=== PATIENT | female | born 1960 | race Caucasian/White ===

== ENCOUNTER 2023-11-08 13:44 | Inpatient (IN) | payer BC ==
[~2023-11-08] VITALS: Ht 167.6 cm; Wt 66.4 kg
[2023-11-08] MEDS ORDERED: ondansetron/PF 4mg/2ml inj IV ONE (16:25)
[2023-11-08 17:19] LABS: EOSINOPHILS # (AUTO) 0.1 X10'3 (0-0.9); HEMATOCRIT 25.6 % (35.0-45.0); HEMOGLOBIN 8.4 g/dl (12.0-16.0); LYMPHOCYTES # (AUTO) 1.8 X10'3 (1.1-4.8)
[2023-11-08 17:21] LABS: BASOPHILS # (AUTO) 0.1 X10'3 (0-0.2); BASOPHILS % (AUTO) 0.6 % (0-1); EOSINOPHILS % (AUTO) 0.5 % (0-6); LYMPHOCYTES % (AUTO) 18.6 % (21-51); MEAN CORPUSCULAR HEMOGLOBIN 31.4 PG (27.0-31.0); MEAN PLATELET VOLUME 6.9 FL (7.4-10.4); MONOCYTES # (AUTO) 0.6 X10'3 (0-0.9); MONOCYTES % (AUTO) 6.5 % (2-12); NEUTROPHILS % (AUTO) 73.8 % (42-75); PLATELET COUNT 373 X10'3 (140-440); RED BLOOD COUNT 2.69 X10'6 (4.20-5.60); RED CELL DISTRIBUTION WIDTH 15.9 % (11.5-14.5); WHITE BLOOD COUNT 9.5 X10'3 (4.5-11.0)
[2023-11-08 17:30] LABS: INR 1.4 INR
[2023-11-08 17:32] LABS: BILIRUBIN,URINE MODERATE (Neg); CLARITY,URINE TURBID (Clear); COLOR,URINE AMBER (Yellow); GLUCOSE, URINE NEGATIVE (Neg); KETONES,URINE TRACE mg/dl (Neg); LEUKOCYTE ESTERASE ,URINE SMALL (Neg); NITRITES, URINE NEGATIVE (Neg); OCCULT BLOOD,URINE SMALL (Neg); PH,URINE 5.5 (4.8-8.0); PROTEIN,URINE NEGATIVE (Neg)
[2023-11-08 17:34] LABS: ALANINE AMINOTRANSFERASE 24 U/L (12-78); ALBUMIN 1.8 G/DL (3.4-5.0); ALBUMIN/GLOBULIN RATIO 0.3 (1.1-1.5); ALKALINE PHOSPHATASE 126 IU/L (46-116); ANION GAP 11 (8-16); ASPARTATE AMINO TRANSFERASE 63 U/L (10-37); BILIRUBIN,TOTAL 3.1 MG/DL (0.1-1.0); BLOOD UREA NITROGEN 19 MG/DL (7-18); BUN/CREATININE RATIO 8.1 (10.0-20.0); CALCIUM 8.1 MG/DL (8.5-10.1); CHLORIDE 98 MMOL/L (99-107); CREATININE 2.36 MG/DL (0.40-0.90); GLUCOSE 97 MG/DL (70-104); LIPASE 12 U/L (16-77); MAGNESIUM 1.8 MG/DL (1.5-2.4); POTASSIUM 3.8 MMOL/L (3.5-5.1); SODIUM 128 MMOL/L (135-145); TOTAL CARBON DIOXIDE 18.9 MMOL/L (24-32); TOTAL PROTEIN 8.2 G/DL (6.4-8.2); eCRCL 23 ML/MIN; eGFR 21 ML/MIN
[2023-11-08 17:41] LABS: UA COLLECTION TYPE OTHER
[2023-11-08 17:44] LABS: PROTHROMBIN TIME 14.6 SECONDS (9.0-12.0)
[2023-11-08 18:38] LABS: HYALINE CASTS >30 /LPF (NEGATIVE); SQUAMOUS EPITHELIAL CELL,UR MANY /LPF (FEW)
[2023-11-08 18:39] LABS: BACTERIA,URINE 4+ /HPF (Neg); WBC,URINE 30-50 /HPF (0-4)
[2023-11-08 18:40] LABS: URIC ACID CRYSTALS 1+ /HPF (NEGATIVE)
[2023-11-08 18:41] LABS: YEAST FEW /HPF (NEGATIVE)
[2023-11-08] MEDS ORDERED: temazepam 15mg capsule PO PRN (21:00)
[2023-11-08] MEDS ORDERED: HYDROmorphone inj. 0.5 MG/0.5 ML DISP.SYRIN IM ONE (21:15)
[2023-11-08] MEDS ORDERED: ondansetron 4mg rapidly disintigrating tab PO ONE (21:15)
[2023-11-08] MEDS ORDERED: HYDROmorphone inj. 0.5 MG/0.5 ML DISP.SYRIN IV ONE (21:30)
[2023-11-08] MEDS ORDERED: morphine 2 MG/ML inj. syringe IV PRN (23:20)
[2023-11-08] MEDS ORDERED: acetaminophen 325mg tablet PO PRN ×2 (23:20)
[2023-11-08] MEDS ORDERED: bisacodyl 10mg suppository rectal RC PRN (23:20)
[2023-11-08] MEDS ORDERED: magnesium hydroxide 30ml (MOM) UD suspension PO PRN (23:20)
[2023-11-08] MEDS ORDERED: ondansetron/PF 4mg/2ml inj IV PRN (23:20)
[2023-11-08] MEDS ORDERED: acetaminophen 650mg rectal suppository RC PRN (23:20)
[2023-11-08] MEDS ORDERED: mag hydrox/Alum hydrox/simeth 30ml oral suspension PO PRN (23:20)
[2023-11-08] MEDS ORDERED: lactulose 20gm/30ml cup PO PRN (23:25)
[2023-11-09] VITALS (8 sets, daily range): BP systolic 97–108; BP diastolic 49–66; PULSE 69–89; RESP 14–18; TEMP 97.3–98.4; O2SAT 92–100
[2023-11-09] MEDS: normal saline 1000ml 1,000 ML IV SCH
[2023-11-09 00:09] LABS: PHOSPHORUS 3.1 MG/DL (2.3-4.5); PRO BRAIN NATRIURETIC PEPTIDE 855 PG/ML (0-125)
[2023-11-09] MEDS ORDERED: LIDO700A32 TOP (01:36)
[2023-11-09] MEDS ORDERED: LACT10SO78 PO (01:36)
[2023-11-09] MEDS ORDERED: PANT-47 PO (01:36)
[2023-11-09] MEDS ORDERED: POTA-208 PO (01:36)
[2023-11-09] MEDS ORDERED: FURO-150 PO (01:36)
[2023-11-09] MEDS ORDERED: DULO-31 PO (01:36)
[2023-11-09] MEDS ORDERED: QUET50TA PO (01:36)
[2023-11-09 06:08] LABS: BASOPHILS # (AUTO) 0.1 X10'3 (0-0.2); EOSINOPHILS # (AUTO) 0.1 X10'3 (0-0.9); HEMATOCRIT 23.7 % (35.0-45.0); HEMOGLOBIN 7.8 g/dl (12.0-16.0); LYMPHOCYTES # (AUTO) 1.8 X10'3 (1.1-4.8); MEAN CORPUSCULAR HEMOGLOBIN 31.4 PG (27.0-31.0); MEAN CORPUSCULAR HGB CONC 33.1 g/dL (33.0-36.5); MEAN PLATELET VOLUME 7.7 FL (7.4-10.4); MONOCYTES # (AUTO) 0.7 X10'3 (0-0.9); MONOCYTES % (AUTO) 7.2 % (2-12); NEUTROPHILS # (AUTO) 7.3 X10'3 (1.8-7.7); NEUTROPHILS % (AUTO) 72.8 % (42-75); PLATELET COUNT 222 X10'3 (140-440); RED BLOOD COUNT 2.49 X10'6 (4.20-5.60); RED CELL DISTRIBUTION WIDTH 15.8 % (11.5-14.5); WHITE BLOOD COUNT 10.1 X10'3 (4.5-11.0)
[2023-11-09 06:15] LABS: ALANINE AMINOTRANSFERASE 16 U/L (12-78); ALBUMIN 1.5 G/DL (3.4-5.0); ALBUMIN/GLOBULIN RATIO 0.3 (1.1-1.5); ALKALINE PHOSPHATASE 117 IU/L (46-116); ANION GAP 9 (8-16); ASPARTATE AMINO TRANSFERASE 68 U/L (10-37); BILIRUBIN,TOTAL 2.5 MG/DL (0.1-1.0); BLOOD UREA NITROGEN 21 MG/DL (7-18); BUN/CREATININE RATIO 8.1 (10.0-20.0); CALCIUM 8.1 MG/DL (8.5-10.1); CHLORIDE 100 MMOL/L (99-107); CREATININE 2.59 MG/DL (0.40-0.90); GLUCOSE 79 MG/DL (70-104); SODIUM 129 MMOL/L (135-145); TOTAL CARBON DIOXIDE 19.9 MMOL/L (24-32); eCRCL 21 ML/MIN; eGFR 19 ML/MIN
[2023-11-09] MEDS ORDERED: pantoprazole 40mg Tablet.DR PO SCH (07:30)
[2023-11-09] MEDS: rifaximin 550mg tablet PO SCH ×2 (08:19→20:08)
[2023-11-09] MEDS: pantoprazole 40mg Tablet.DR PO SCH (08:19)
[2023-11-09] MEDS: furosemide 10 MG/1 ML 10ml inj IV SCH ×2 (08:20→20:08)
[2023-11-09] MEDS: CefTRIAXone/D5W-Rocephin 1gm 50 ML IV SCH (08:20)
[2023-11-09] MEDS: docusate sod 100mg capsule PO SCH ×2 (08:21→20:08)
[2023-11-09] MEDS: HYDROcodone/acetaminophen 5mg/325mg tablet PO PRN ×2 (08:24→20:09)
[2023-11-09] MEDS: ondansetron 4mg rapidly disintigrating tab PO PRN (08:24)
[2023-11-09] MEDS ORDERED: pneumococcal 23-VAL P-sac vacc 25 mcg/0.5ml vial IMVAC ONE (10:00)
[2023-11-09] MEDS ORDERED: FLU VACC QS2023-24(6MOS UP)/PF 60 MCG/0.5 ML SYRINGE IM ONE (10:00)
[2023-11-09] MEDS: LIDOcaine 5% patch TP SCH (21:30)
[2023-11-09] MEDS: duloxetine 30mg CAPSULE.DR PO SCH (21:30)
[2023-11-09] MEDS: lactulose 20gm/30ml cup PO SCH ×2 (21:35→22:00)
[2023-11-10 02:35] VITALS: BP 107/59; PULSE 83; RESP 16; TEMP 97.3; O2SAT 92
[2023-11-10 06:00] VITALS: BP 112/56; PULSE 64; RESP 10; TEMP 98; O2SAT 94
[2023-11-10] MEDS: lactulose 20gm/30ml cup PO SCH ×3 (06:00→22:00)
[2023-11-10 06:48] LABS: BASOPHILS # (AUTO) 0.1 X10'3 (0-0.2); BASOPHILS % (AUTO) 0.8 % (0-1); EOSINOPHILS # (AUTO) 0.1 X10'3 (0-0.9); EOSINOPHILS % (AUTO) 1.6 % (0-6); HEMATOCRIT 22.7 % (35.0-45.0); HEMOGLOBIN 7.6 g/dl (12.0-16.0); LYMPHOCYTES # (AUTO) 1.8 X10'3 (1.1-4.8); LYMPHOCYTES % (AUTO) 22.8 % (21-51); MEAN CORPUSCULAR HEMOGLOBIN 31.5 PG (27.0-31.0); MEAN CORPUSCULAR HGB CONC 33.4 g/dL (33.0-36.5); MEAN CORPUSCULAR VOLUME 94.2 FL (78-98); MEAN PLATELET VOLUME 6.9 FL (7.4-10.4); MONOCYTES # (AUTO) 0.6 X10'3 (0-0.9); MONOCYTES % (AUTO) 7.9 % (2-12); NEUTROPHILS # (AUTO) 5.4 X10'3 (1.8-7.7); NEUTROPHILS % (AUTO) 66.9 % (42-75); PLATELET COUNT 310 X10'3 (140-440); RED BLOOD COUNT 2.42 X10'6 (4.20-5.60); RED CELL DISTRIBUTION WIDTH 16.3 % (11.5-14.5)
[2023-11-10 07:16] LABS: ALANINE AMINOTRANSFERASE 20 U/L (12-78); ALBUMIN 1.5 G/DL (3.4-5.0); ALBUMIN/GLOBULIN RATIO 0.3 (1.1-1.5); ALKALINE PHOSPHATASE 107 IU/L (46-116); ANION GAP 11 (8-16); ASPARTATE AMINO TRANSFERASE 57 U/L (10-37); BILIRUBIN,TOTAL 2.1 MG/DL (0.1-1.0); BLOOD UREA NITROGEN 25 MG/DL (7-18); BUN/CREATININE RATIO 8.5 (10.0-20.0); CALCIUM 8.1 MG/DL (8.5-10.1); CHLORIDE 100 MMOL/L (99-107); CREATININE 2.95 MG/DL (0.40-0.90); GLUCOSE 78 MG/DL (70-104); POTASSIUM 3.6 MMOL/L (3.5-5.1); SODIUM 130 MMOL/L (135-145); TOTAL CARBON DIOXIDE 18.9 MMOL/L (24-32); TOTAL PROTEIN 7.1 G/DL (6.4-8.2); eCRCL 19 ML/MIN; eGFR 16 ML/MIN
[2023-11-10] MEDS: docusate sod 100mg capsule PO SCH ×2 (08:00→20:00)
[2023-11-10] MEDS: pantoprazole 40mg Tablet.DR PO SCH (08:26)
[2023-11-10] MEDS: furosemide 10 MG/1 ML 10ml inj IV SCH ×2 (08:27→20:35)
[2023-11-10] MEDS: duloxetine 30mg CAPSULE.DR PO SCH (08:27)
[2023-11-10] MEDS: rifaximin 550mg tablet PO SCH ×2 (08:27→20:34)
[2023-11-10] MEDS: LIDOcaine 5% patch TP SCH (08:27)
[2023-11-10] MEDS: CefTRIAXone/D5W-Rocephin 1gm 50 ML IV SCH (08:27)
[2023-11-10] MEDS ORDERED: LidoCAINE 2% Topical Jelly 11mL syringe TOP ONE (10:30)
[2023-11-10 12:03] LABS: BILIRUBIN,URINE NEGATIVE (Neg); CLARITY,URINE CLOUDY (Clear); COLOR,URINE YELLOW (Yellow); GLUCOSE, URINE NEGATIVE (Neg); KETONES,URINE NEGATIVE (Neg); LEUKOCYTE ESTERASE ,URINE NEGATIVE (Neg); NITRITES, URINE NEGATIVE (Neg); OCCULT BLOOD,URINE SMALL (Neg); PH,URINE 5.5 (4.8-8.0); PROTEIN,URINE NEGATIVE (Neg); UROBILINOGEN,URINE 0.2 E.U/dL (0.2-1.0)
[2023-11-10 12:28] LABS: SODIUM,URINE RANDOM < 15 MEQ/L; TOTAL PROTEIN,URINE RANDOM 25.9 MG/DL; UA COLLECTION TYPE NON-SPECIFIED
[2023-11-10 12:29] LABS: HYALINE CASTS >30 /LPF (NEGATIVE); SQUAMOUS EPITHELIAL CELL,UR MANY /LPF (FEW)
[2023-11-10 12:32] LABS: CAL OXALATE CRYSTALS FEW /HPF (NEGATIVE)
[2023-11-10 12:33] LABS: BACTERIA,URINE 1+ /HPF (Neg); CELLULAR CAST 0-4 /LPF (NEGATIVE)
[2023-11-10 12:35] LABS: COARSE GRANULAR CAST 0-3 /LPF (NEGATIVE); FINE GRANULAR CAST 0-3 /LPF (NEGATIVE)
[2023-11-10 12:36] LABS: MUCUS STRANDS FEW /LPF (Neg); TRANSITIONAL EPI CELLS,URINE FEW /HPF
[2023-11-10 13:35] LABS: UA EOSINOPHILS NO EOS /HPF
[2023-11-10 15:00] VITALS: BP 98/56; PULSE 89; RESP 17; TEMP 98.3; O2SAT 95
[2023-11-10 18:00] VITALS: BP 106/63; PULSE 91; RESP 14; TEMP 97.4; O2SAT 96
[2023-11-10 20:00] VITALS: RESP 14; O2SAT 96
[2023-11-10] MEDS: HYDROcodone/acetaminophen 5mg/325mg tablet PO PRN (20:34)
[2023-11-10 22:00] VITALS: BP 114/66; PULSE 88; RESP 14; TEMP 97.9; O2SAT 93
[2023-11-10] MEDS: normal saline 1000ml 1,000 ML IV SCH (23:08)
[2023-11-11] VITALS (7 sets, daily range): BP systolic 105–124; BP diastolic 62–75; PULSE 83–89; RESP 14–20; TEMP 97.1–98.8; O2SAT 94–97
[2023-11-11 06:11] LABS: HEMOGLOBIN 7.2 g/dl (12.0-16.0); RED BLOOD COUNT 2.33 X10'6 (4.20-5.60)
[2023-11-11 06:15] LABS: MEAN PLATELET VOLUME 6.7 FL (7.4-10.4); PLATELET COUNT 300 X10'3 (140-440); RED CELL DISTRIBUTION WIDTH 16.3 % (11.5-14.5); WHITE BLOOD COUNT 7.3 X10'3 (4.5-11.0)
[2023-11-11 06:30] LABS: ALANINE AMINOTRANSFERASE 24 U/L (12-78); ALBUMIN 1.5 G/DL (3.4-5.0); ALBUMIN/GLOBULIN RATIO 0.3 (1.1-1.5); ALKALINE PHOSPHATASE 100 IU/L (46-116); ANION GAP 12 (8-16); ASPARTATE AMINO TRANSFERASE 56 U/L (10-37); BILIRUBIN,TOTAL 1.8 MG/DL (0.1-1.0); BLOOD UREA NITROGEN 23 MG/DL (7-18); BUN/CREATININE RATIO 8.2 (10.0-20.0); CALCIUM 8.2 MG/DL (8.5-10.1); CHLORIDE 101 MMOL/L (99-107); CREATININE 2.81 MG/DL (0.40-0.90); GLUCOSE 82 MG/DL (70-104); POTASSIUM 3.4 MMOL/L (3.5-5.1); SODIUM 131 MMOL/L (135-145); TOTAL PROTEIN 6.9 G/DL (6.4-8.2); eCRCL 20 ML/MIN; eGFR 17 ML/MIN
[2023-11-11 06:52] LABS: HEMATOCRIT 21.9 % (35.0-45.0)
[2023-11-11 07:17] LABS: ANISOCYTOSIS 1+; PLATELET ESTIMATE NORMAL; TOTAL CELLS COUNTED 100
[2023-11-11 07:18] LABS: SCHISTOCYTES FEW
[2023-11-11 07:27] LABS: TARGET CELLS FEW
[2023-11-11] MEDS: LIDOcaine 5% patch TP SCH (08:00)
[2023-11-11] MEDS: duloxetine 30mg CAPSULE.DR PO SCH (08:11)
[2023-11-11] MEDS: docusate sod 100mg capsule PO SCH ×2 (08:11→20:00)
[2023-11-11] MEDS: pantoprazole 40mg Tablet.DR PO SCH (08:11)
[2023-11-11] MEDS: rifaximin 550mg tablet PO SCH ×2 (08:11→20:08)
[2023-11-11] MEDS: lactulose 20gm/30ml cup PO SCH ×3 (08:11→22:00)
[2023-11-11] MEDS: ondansetron 4mg rapidly disintigrating tab PO PRN (08:23)
[2023-11-11] MEDS ORDERED: potassium Cl 20 mEq SR tablet PO PRN (10:50)
[2023-11-11] MEDS ORDERED: magnesium Cl slow-release 64mg tablet PO PRN (10:50)
[2023-11-11] MEDS: CefTRIAXone/D5W-Rocephin 1gm 50 ML IV SCH (11:54)
[2023-11-11] MEDS: furosemide 10 MG/1 ML 10ml inj IV SCH (11:57)
[2023-11-11] MEDS: potassium Cl 20 mEq SR tablet PO PRN ×3 (12:02→22:17)
[2023-11-11] MEDS ORDERED: EPOETIN ALFA-EPBX 20,000 UNIT/ML 1 ML MDV SQ ONE (15:00)
[2023-11-11] MEDS: HYDROcodone/acetaminophen 5mg/325mg tablet PO PRN (15:36)
[2023-11-11 16:39] LABS: % IRON SATURATION 90 % (11-46); IRON 44 UG/DL (49-151); TOTAL IRON BINDING CAPACITY 49 UG/DL (259-388)
[2023-11-11 16:56] LABS: FERRITIN 837 NG/ML (8-252)
[2023-11-11] MEDS: K and/or MAG REPLACEMENT MC SCH (20:07)
[2023-11-11] MEDS: furosemide 20 MG/2 ML vial IV SCH (20:09)
[2023-11-12] VITALS (7 sets, daily range): BP systolic 106–120; BP diastolic 53–68; PULSE 82–91; RESP 14–18; TEMP 97.1–97.5; O2SAT 93–95
[2023-11-12] MEDS: lactulose 20gm/30ml cup PO SCH ×3 (06:00→21:12)
[2023-11-12] MEDS: furosemide 20 MG/2 ML vial IV SCH ×2 (07:30→20:24)
[2023-11-12] MEDS: LIDOcaine 5% patch TP SCH (07:31)
[2023-11-12] MEDS: CefTRIAXone/D5W-Rocephin 1gm 50 ML IV SCH (07:31)
[2023-11-12] MEDS: pantoprazole 40mg Tablet.DR PO SCH (07:31)
[2023-11-12] MEDS: duloxetine 30mg CAPSULE.DR PO SCH (07:31)
[2023-11-12] MEDS: rifaximin 550mg tablet PO SCH ×2 (07:31→20:24)
[2023-11-12] MEDS: K and/or MAG REPLACEMENT MC SCH ×2 (08:00→19:04)
[2023-11-12] MEDS: docusate sod 100mg capsule PO SCH ×2 (08:00→20:00)
[2023-11-12 08:47] LABS: ALBUMIN 1.6 G/DL (3.4-5.0); ALBUMIN/GLOBULIN RATIO 0.3 (1.1-1.5); ALKALINE PHOSPHATASE 110 IU/L (46-116); ANION GAP 14 (8-16); ASPARTATE AMINO TRANSFERASE 62 U/L (10-37); BILIRUBIN,TOTAL 1.6 MG/DL (0.1-1.0); BLOOD UREA NITROGEN 21 MG/DL (7-18); BUN/CREATININE RATIO 8.6 (10.0-20.0); CALCIUM 8.4 MG/DL (8.5-10.1); CHLORIDE 102 MMOL/L (99-107); CREATININE 2.44 MG/DL (0.40-0.90); GLUCOSE 76 MG/DL (70-104); MAGNESIUM 1.7 MG/DL (1.5-2.4); POTASSIUM 3.6 MMOL/L (3.5-5.1); SODIUM 134 MMOL/L (135-145); TOTAL CARBON DIOXIDE 18.2 MMOL/L (24-32); TOTAL PROTEIN 7.5 G/DL (6.4-8.2); eCRCL 23 ML/MIN; eGFR 20 ML/MIN
[2023-11-12 09:09] LABS: ALANINE AMINOTRANSFERASE 19 U/L (12-78)
[2023-11-12 10:01] LABS: BASOPHILS % (AUTO) 0.6 % (0-1); EOSINOPHILS # (AUTO) 0.1 X10'3 (0-0.9); EOSINOPHILS % (AUTO) 1.4 % (0-6); HEMATOCRIT 27.5 % (35.0-45.0); LYMPHOCYTES # (AUTO) 1.9 X10'3 (1.1-4.8); MEAN CORPUSCULAR HGB CONC 32.9 g/dL (33.0-36.5); MEAN CORPUSCULAR VOLUME 94.3 FL (78-98); MEAN PLATELET VOLUME 6.9 FL (7.4-10.4); MONOCYTES # (AUTO) 0.6 X10'3 (0-0.9); MONOCYTES % (AUTO) 7.3 % (2-12); NEUTROPHILS # (AUTO) 5.8 X10'3 (1.8-7.7); PLATELET COUNT 347 X10'3 (140-440); RED BLOOD COUNT 2.92 X10'6 (4.20-5.60); RED CELL DISTRIBUTION WIDTH 16.7 % (11.5-14.5); WHITE BLOOD COUNT 8.5 X10'3 (4.5-11.0)
[2023-11-12 10:04] LABS: NEUTROPHILS % (AUTO) 68.3 % (42-75)
[2023-11-12 10:05] LABS: LYMPHOCYTES % (AUTO) 22.4 % (21-51)
[2023-11-12] MEDS: HYDROcodone/acetaminophen 5mg/325mg tablet PO PRN (18:50)
[2023-11-12] MEDS: normal saline 1000ml 1,000 ML IV SCH (23:00)
[2023-11-13] VITALS (7 sets, daily range): BP systolic 91–102; BP diastolic 54–75; PULSE 81–101; RESP 14–18; TEMP 97.4–97.8; O2SAT 94–100
[2023-11-13] MEDS: lactulose 20gm/30ml cup PO SCH ×2 (06:00→15:40)
[2023-11-13] MEDS: docusate sod 100mg capsule PO SCH (08:00)
[2023-11-13] MEDS: K and/or MAG REPLACEMENT MC SCH (08:00)
[2023-11-13 08:24] LABS: ALBUMIN 1.5 G/DL (3.4-5.0); ANION GAP 10 (8-16); BILIRUBIN,TOTAL 1.6 MG/DL (0.1-1.0); BLOOD UREA NITROGEN 20 MG/DL (7-18); BUN/CREATININE RATIO 10.2 (10.0-20.0); CALCIUM 8.2 MG/DL (8.5-10.1); CHLORIDE 102 MMOL/L (99-107); CREATININE 1.97 MG/DL (0.40-0.90); GLUCOSE 79 MG/DL (70-104); MAGNESIUM 1.6 MG/DL (1.5-2.4); POTASSIUM 3.2 MMOL/L (3.5-5.1); SODIUM 132 MMOL/L (135-145); TOTAL CARBON DIOXIDE 20.5 MMOL/L (24-32); TOTAL PROTEIN 7.2 G/DL (6.4-8.2); eCRCL 28 ML/MIN; eGFR 26 ML/MIN
[2023-11-13 08:25] LABS: ALANINE AMINOTRANSFERASE 15 U/L (12-78); ALBUMIN/GLOBULIN RATIO 0.3 (1.1-1.5); ALKALINE PHOSPHATASE 103 IU/L (46-116); ASPARTATE AMINO TRANSFERASE 56 U/L (10-37)
[2023-11-13 08:35] LABS: BASOPHILS # (AUTO) 0.1 X10'3 (0-0.2); EOSINOPHILS # (AUTO) 0.1 X10'3 (0-0.9); EOSINOPHILS % (AUTO) 1.9 % (0-6); HEMATOCRIT 23.5 % (35.0-45.0); HEMOGLOBIN 7.9 g/dl (12.0-16.0); LYMPHOCYTES # (AUTO) 1.8 X10'3 (1.1-4.8); MEAN CORPUSCULAR HEMOGLOBIN 31.3 PG (27.0-31.0); MEAN CORPUSCULAR HGB CONC 33.5 g/dL (33.0-36.5); MEAN CORPUSCULAR VOLUME 93.6 FL (78-98); MEAN PLATELET VOLUME 6.9 FL (7.4-10.4); MONOCYTES # (AUTO) 0.6 X10'3 (0-0.9); MONOCYTES % (AUTO) 8.3 % (2-12); NEUTROPHILS # (AUTO) 4.2 X10'3 (1.8-7.7); NEUTROPHILS % (AUTO) 62.8 % (42-75); PLATELET COUNT 305 X10'3 (140-440); RED BLOOD COUNT 2.51 X10'6 (4.20-5.60); RED CELL DISTRIBUTION WIDTH 16.5 % (11.5-14.5); WHITE BLOOD COUNT 6.8 X10'3 (4.5-11.0)
[2023-11-13] MEDS ORDERED: albumin (human) 25% 100 ML IV solution IV ONE (09:40)
[2023-11-13] MEDS ORDERED: EPOETIN ALFA-EPBX 20,000 UNIT/ML 1 ML MDV SQ ONE (10:00)
[2023-11-13] MEDS: CefTRIAXone/D5W-Rocephin 1gm 50 ML IV SCH (10:24)
[2023-11-13] MEDS: pantoprazole 40mg Tablet.DR PO SCH (10:25)
[2023-11-13] MEDS: furosemide 20 MG/2 ML vial IV SCH (10:25)
[2023-11-13] MEDS: duloxetine 30mg CAPSULE.DR PO SCH (10:25)
[2023-11-13] MEDS: rifaximin 550mg tablet PO SCH (10:26)
[2023-11-13] MEDS: LIDOcaine 5% patch TP SCH (10:27)
[2023-11-13] MEDS: normal saline 1000ml 1,000 ML IV SCH (10:27)
[2023-11-13] MEDS ORDERED: RIFA550T PO (11:21)
[2023-11-13] MEDS: HYDROcodone/acetaminophen 5mg/325mg tablet PO PRN (15:38)
== END 2023-11-13 17:57 | disposition home or self-care (01) | DRG 433 ==
LOC: ER 13:45 → ED HOLD 23:23 → PCU 3S 11-09 00:05
PROVIDERS: ADMIT Family Medicine; ATTEND Internal Medicine
PROC: 0W9G3ZZ Drainage of Peritoneal Cavity, Percutaneous Approach (ICD-10-PCS; principal; 2023-11-13)
DX: K70.31 Alcoholic cirrhosis of liver with ascites (principal); E87.1 Hypo-osmolality and hyponatremia; N39.0 Urinary tract infection, site not specified; E87.20 Acidosis, unspecified; N17.9 Acute kidney failure, unspecified; R31.29 Other microscopic hematuria; N18.30 Chronic kidney disease, stage 3 unspecified; K76.82 Hepatic encephalopathy; K59.00 Constipation, unspecified; F10.20 Alcohol dependence, uncomplicated; E86.1 Hypovolemia; Z20.822 Contact with and (suspected) exposure to COVID-19; E87.6 Hypokalemia; D64.9 Anemia, unspecified; E88.09 Other disorders of plasma-protein metabolism, not elsewhere classified; Z79.899 Other long term (current) drug therapy
CPT/HCPCS: 36415; 49083; 70450; 74176; 76770; 80053; 81001; 82140; 82570; 82728; 83540; 83550; 83605; 83690; 83735; 83880; 84100; 84156; 84300; 84484; 85007; 85025; 85610; 86885; 86900; 86901; 87040; 87081; 87207; 87502; 87503; 87811; 96374; 96375; 97161; 97530; 99285; A4314; A5200; A6212; A6258; G0378; J0696; J1170; J1940; J2270; J2405; J7030; P9047; Q4081

== ENCOUNTER 2023-11-15 15:53 | Outpatient (CLI) | payer BC ==
[~2023-11-15 15:53] MED LIST: DULO-31 PO; FURO-150 PO; LACT10SO78 PO; LIDO700A32 TOP; PANT-47 PO; POTA-208 PO; QUET50TA PO; RIFA550T PO
[2023-11-15 16:50] LABS: HEMOGLOBIN 8.9 g/dl (12.0-16.0)
[2023-11-15 16:52] LABS: BASOPHILS # (AUTO) 0.1 X10'3 (0-0.2); BASOPHILS % (AUTO) 0.7 % (0-1); EOSINOPHILS # (AUTO) 0.1 X10'3 (0-0.9); EOSINOPHILS % (AUTO) 0.6 % (0-6); HEMATOCRIT 27.7 % (35.0-45.0); LYMPHOCYTES % (AUTO) 22.2 % (21-51); MEAN CORPUSCULAR HEMOGLOBIN 31.3 PG (27.0-31.0); MEAN CORPUSCULAR VOLUME 97.6 FL (78-98); MEAN PLATELET VOLUME 7.2 FL (7.4-10.4); MONOCYTES # (AUTO) 0.5 X10'3 (0-0.9); MONOCYTES % (AUTO) 5.8 % (2-12); NEUTROPHILS # (AUTO) 6.3 X10'3 (1.8-7.7); NEUTROPHILS % (AUTO) 70.7 % (42-75); PLATELET COUNT 405 X10'3 (140-440); RED BLOOD COUNT 2.84 X10'6 (4.20-5.60); RED CELL DISTRIBUTION WIDTH 17.3 % (11.5-14.5); WHITE BLOOD COUNT 8.9 X10'3 (4.5-11.0)
[2023-11-15 17:28] LABS: ALANINE AMINOTRANSFERASE 25 U/L (12-78); ALBUMIN 1.8 G/DL (3.4-5.0); ALBUMIN/GLOBULIN RATIO 0.3 (1.1-1.5); ALKALINE PHOSPHATASE 100 IU/L (46-116); ANION GAP 14 (8-16); ASPARTATE AMINO TRANSFERASE 63 U/L (10-37); BILIRUBIN,DIRECT 0.8 MG/DL (0-0.3); BILIRUBIN,TOTAL 1.7 MG/DL (0.1-1.0); BLOOD UREA NITROGEN 17 MG/DL (7-18); BUN/CREATININE RATIO 7.8 (10.0-20.0); CHLORIDE 100 MMOL/L (99-107); CREATININE 2.18 MG/DL (0.40-0.90); GLUCOSE 104 MG/DL (70-104); POTASSIUM 4.2 MMOL/L (3.5-5.1); SODIUM 129 MMOL/L (135-145); TOTAL CARBON DIOXIDE 15.5 MMOL/L (24-32); TOTAL PROTEIN 7.8 G/DL (6.4-8.2); eGFR 23 ML/MIN
[2023-11-16] MEDS ORDERED: LIDO700A32 TOP (18:40)
[2023-11-16] MEDS ORDERED: POTA-208 PO (18:40)
[2023-11-16] MEDS ORDERED: RIFA550T PO (18:40)
[2023-11-16] MEDS ORDERED: DULO-31 PO (18:40)
[2023-11-16] MEDS ORDERED: QUET50TA PO (18:40)
[2023-11-16] MEDS ORDERED: PANT-47 PO (18:40)
[2023-11-16] MEDS ORDERED: LACT10SO78 PO (18:40)
[2023-11-16] MEDS ORDERED: FURO-150 PO (18:40)
== END 2023-11-15 23:59 | disposition home or self-care (01) ==
LOC: LAB 15:53
PROVIDERS: ATTEND Internal Medicine Critical Care Medicine
DX: N39.0 Urinary tract infection, site not specified (principal); N17.9 Acute kidney failure, unspecified
CPT/HCPCS: 36415; 80048; 80076; 85025

== ENCOUNTER 2023-11-16 15:18 | Emergency (ER) | payer BC ==
[~2023-11-16] VITALS: Ht 167.6 cm; Wt 66.4 kg
[2023-11-16 15:24] VITALS: TEMP 98.1
[2023-11-16 16:41] LABS: BASOPHILS # (AUTO) 0.2 X10'3 (0-0.2); BASOPHILS % (AUTO) 1.9 % (0-1); EOSINOPHILS # (AUTO) 0.1 X10'3 (0-0.9); EOSINOPHILS % (AUTO) 0.9 % (0-6); HEMATOCRIT 24.6 % (35.0-45.0); HEMOGLOBIN 8.2 g/dl (12.0-16.0); LYMPHOCYTES # (AUTO) 2.1 X10'3 (1.1-4.8); LYMPHOCYTES % (AUTO) 25.5 % (21-51); MEAN CORPUSCULAR HEMOGLOBIN 31.2 PG (27.0-31.0); MEAN CORPUSCULAR HGB CONC 33.1 g/dL (33.0-36.5); MEAN CORPUSCULAR VOLUME 94.3 FL (78-98); MEAN PLATELET VOLUME 6.9 FL (7.4-10.4); MONOCYTES # (AUTO) 0.6 X10'3 (0-0.9); MONOCYTES % (AUTO) 7.2 % (2-12); NEUTROPHILS # (AUTO) 5.2 X10'3 (1.8-7.7); NEUTROPHILS % (AUTO) 64.5 % (42-75); PLATELET COUNT 369 X10'3 (140-440); RED BLOOD COUNT 2.61 X10'6 (4.20-5.60); RED CELL DISTRIBUTION WIDTH 17.1 % (11.5-14.5); WHITE BLOOD COUNT 8.1 X10'3 (4.5-11.0)
[2023-11-16 16:49] LABS: ALANINE AMINOTRANSFERASE 18 U/L (12-78); ALBUMIN 1.8 G/DL (3.4-5.0); ALBUMIN/GLOBULIN RATIO 0.3 (1.1-1.5); ALKALINE PHOSPHATASE 91 IU/L (46-116); ANION GAP 11 (8-16); ASPARTATE AMINO TRANSFERASE 57 U/L (10-37); BILIRUBIN,TOTAL 1.6 MG/DL (0.1-1.0); BLOOD UREA NITROGEN 18 MG/DL (7-18); CALCIUM 8.5 MG/DL (8.5-10.1); CHLORIDE 102 MMOL/L (99-107); CREATININE 2.57 MG/DL (0.40-0.90); ETHANOL < 10 MG/DL (<10); GLUCOSE 107 MG/DL (70-104); LIPASE 13 U/L (16-77); SODIUM 132 MMOL/L (135-145); TOTAL CARBON DIOXIDE 18.6 MMOL/L (24-32); TOTAL PROTEIN 7.4 G/DL (6.4-8.2); eCRCL 22 ML/MIN; eGFR 19 ML/MIN
[2023-11-16 16:50] LABS: POTASSIUM 4.1 MMOL/L (3.5-5.1)
[2023-11-16 17:25] LABS: APTT 31 SECONDS (22-32); INR 1.3 INR; PROTHROMBIN TIME 13.3 SECONDS (9.0-12.0)
[2023-11-16] MEDS ORDERED: normal saline 1000ML IV soln IVB ONE (17:40)
[2023-11-16] MEDS ORDERED: LACT10SO78 PO (18:40)
[2023-11-16] MEDS ORDERED: FURO-150 PO (18:40)
[2023-11-16] MEDS ORDERED: QUET50TA PO (18:40)
[2023-11-16] MEDS ORDERED: RIFA550T PO (18:40)
[2023-11-16] MEDS ORDERED: LIDO700A32 TOP (18:40)
[2023-11-16] MEDS ORDERED: POTA-208 PO (18:40)
[2023-11-16] MEDS ORDERED: DULO-31 PO (18:40)
[2023-11-16] MEDS ORDERED: PANT-47 PO (18:40)
[2023-11-16 19:40] VITALS: BP 126/83; PULSE 86; RESP 17; O2SAT 96
== END 2023-11-16 19:43 | disposition home or self-care (01) ==
LOC: ER 15:18
DX: N18.9 Chronic kidney disease, unspecified (principal); E46 Unspecified protein-calorie malnutrition; D53.9 Nutritional anemia, unspecified; K72.90 Hepatic failure, unspecified without coma; Z72.89 Other problems related to lifestyle; Z79.899 Other long term (current) drug therapy
CPT/HCPCS: 36415; 80053; 80320; 82140; 83690; 85025; 85610; 85730; 99284; J7030; J7040

== ENCOUNTER 2023-12-03 06:56 | Day surgery (SDC) | payer BC ==
[~2023-12-03] VITALS: Ht 177.8 cm; Wt 73.0 kg
[2023-12-03] VITALS (8 sets, daily range): BP systolic 111–120; BP diastolic 62–92; PULSE 84–92; RESP 15–18; TEMP 98; O2SAT 96–97
[2023-12-03] MEDS ORDERED: albumin 25% 100mL bottle x 1 IV PRN (07:15)
[2023-12-03] MEDS ORDERED: normal saline 1000ml 1,000 ML IV PRN (07:15)
[2023-12-03] MEDS ORDERED: ONDA8TAB13 PO ×2 (07:18→07:35)
[2023-12-03] MEDS ORDERED: TAM75C PO (07:18)
[2023-12-03] MEDS ORDERED: QUET50TA PO (07:35)
[2023-12-03] MEDS ORDERED: RIFA550T PO (07:35)
[2023-12-03] MEDS ORDERED: FURO-150 PO (07:35)
[2023-12-03] MEDS ORDERED: PANT40SU2 PO (07:35)
[2023-12-03] MEDS ORDERED: LIDO1ADH78 TOP (07:35)
[2023-12-03] MEDS ORDERED: DULO30CA38 PO (07:35)
[2023-12-03] MEDS ORDERED: POTA-192 PO (07:35)
[2023-12-03] MEDS ORDERED: LACT10SO7 PO (07:35)
== END 2023-12-03 10:25 | disposition home or self-care (01) ==
LOC: SSTAY O 06:56
PROVIDERS: ATTEND Radiology Diagnostic Radiology
DX: R18.8 Other ascites (principal); R14.0 Abdominal distension (gaseous); N18.9 Chronic kidney disease, unspecified; K21.9 Gastro-esophageal reflux disease without esophagitis; F41.9 Anxiety disorder, unspecified; F32.A Depression, unspecified; Z79.899 Other long term (current) drug therapy; Z90.49 Acquired absence of other specified parts of digestive tract; Z98.84 Bariatric surgery status; Z98.890 Other specified postprocedural states; Z82.49 Family history of ischemic heart disease and other diseases of the circulatory system; Z80.1 Family history of malignant neoplasm of trachea, bronchus and lung; Z80.41 Family history of malignant neoplasm of ovary
CPT/HCPCS: 49083; C1729; J3490; P9047; A6258; A6449